=== PATIENT | female | born 1985 | race Two or more races ===

== ENCOUNTER → 2019-03-30 09:21 | Outpatient (CLI) | payer OTHER ==
[~2019-03-30 09:21] MED LIST: BUCALSEP SPRAY30 ML MM; CEFTIN500 MG PO; CLINDA-BENZOYL35 GM; KETO10TA2 PO; MIRALAX510 GM PO; MOTRIN IB200 MG; PERCOCET 5-3251 EACH PO; PNEU16DI2
== END | disposition home or self-care (01) ==
LOC: LAB 09:21
DX: E78.49 Other hyperlipidemia (principal); Z00.00 Encounter for general adult medical examination without abnormal findings; R42 Dizziness and giddiness; E55.9 Vitamin D deficiency, unspecified; J11.1 Influenza due to unidentified influenza virus with other respiratory manifestations; Z11.4 Encounter for screening for human immunodeficiency virus [HIV]; Z11.3 Encounter for screening for infections with a predominantly sexual mode of transmission

== ENCOUNTER 2019-04-20 09:08 | Outpatient (CLI) | payer OTHER | END 2019-04-20 13:32 | disposition home or self-care (01) | LOC: LAB 09:08 | DX: N39.0 Urinary tract infection, site not specified (principal) ==

== ENCOUNTER 2020-01-20 10:00 | Outpatient (CLI) | payer OTHER | END 2020-01-20 15:00 | disposition home or self-care (01) | LOC: PPH VACUNA 10:00 | DX: Z23 Encounter for immunization (principal) ==

== ENCOUNTER 2020-01-30 07:18 | Outpatient (CLI) | payer OTHER | END 2020-01-30 07:36 | disposition home or self-care (01) | LOC: LAB 07:18 | PROVIDERS: ATTEND Internal Medicine | DX: I11.9 Hypertensive heart disease without heart failure (principal); E78.00 Pure hypercholesterolemia, unspecified; D64.89 Other specified anemias; R30.0 Dysuria; Z12.11 Encounter for screening for malignant neoplasm of colon; R53.83 Other fatigue; R73.09 Other abnormal glucose ==

== ENCOUNTER 2020-02-01 07:19 | Outpatient (CLI) | payer OTHER | END 2020-02-01 07:22 | disposition home or self-care (01) | LOC: LAB 07:19 | PROVIDERS: ATTEND Internal Medicine | DX: D64.89 Other specified anemias (principal); I11.9 Hypertensive heart disease without heart failure; E78.00 Pure hypercholesterolemia, unspecified; R53.83 Other fatigue; R73.09 Other abnormal glucose; Z12.11 Encounter for screening for malignant neoplasm of colon; R30.0 Dysuria ==

== ENCOUNTER 2020-02-16 07:32 | Outpatient (CLI) | payer OTHER | END 2020-02-16 07:34 | disposition home or self-care (01) | LOC: SONOGRAMA 07:32 → MAMO-SONO 08:15 | PROVIDERS: ATTEND Internal Medicine | DX: N28.89 Other specified disorders of kidney and ureter (principal) ==

== ENCOUNTER 2020-04-17 14:37 | Outpatient (CLI) | payer OTHER | END 2020-04-17 15:00 | disposition home or self-care (01) | LOC: PPH VACUNA 14:37 | DX: Z23 Encounter for immunization (principal) ==

== ENCOUNTER 2021-01-30 08:00 | Outpatient (CLI) | payer OTHER | END 2021-01-30 08:30 | disposition home or self-care (01) | LOC: PPH VACUNA 08:00 | PROVIDERS: ATTEND Emergency Medicine Pediatric Emergency Medicine | DX: Z23 Encounter for immunization (principal) ==